=== PATIENT | male | born 1980 | race Caucasian/White ===

== ENCOUNTER 2018-04-19 09:25 | Emergency (ER) | payer OTHER ==
[~2018-04-19] VITALS: Ht 182.9 cm; Wt 102.1 kg
[2018-04-19] MEDS ORDERED: CYCL-331 PO (10:19)
[2018-04-19] MEDS ORDERED: TRAM-48 PO (10:19)
--- NOTE | 2018-04-19 10:19 | PHYS DOC ---
Past History Past Medical History: No Pertinent History Alcohol Use: None Drug Use: None Adult General Chief Complaint Chief Complaint: LOWER BACK PAIN OR INJURY HPI HPI Patient is a 38 year old male who presents with complaining of low back pain since yesterday. Patient states he bending over a grocery cart yesterday and felt sudden onset of pain in his back that getting worse with walking and movement. Patient denies focal neuro deficit, fever and chills, history of back pain, nausea and vomiting, fever and chills, urinary symptoms, urine and bowel incontinence. Patient rated his pain 8/10. Review of Systems Review of Systems Constitutional: Denies fever or chills [] Eyes: Denies change in visual acuity, redness, or eye pain [] HENT: Denies nasal congestion or sore throat [] Respiratory: Denies cough or shortness of breath [] Cardiovascular: No additional information not addressed in HPI [] GI: Denies abdominal pain, nausea, vomiting, bloody stools or diarrhea [] : Denies dysuria or hematuria [] Musculoskeletal: Reports back pain Integument: Denies rash or skin lesions [] Neurologic: Denies headache, focal weakness or sensory changes [] Endocrine: Denies polyuria or polydipsia [] All other systems were reviewed and found to be within normal limits, except as documented in this note. Current Medications Current Medications Current Medications Medications (Trade) Dose Ordered Sig/Eugenia Start Time Stop Time Status Last Admin Dose Admin Ketorolac Tromethamine (Toradol Im) 60 mg 1X ONCE 04/19/18 10:15 04/19/18 10:16 UNV Physical Exam Physical Exam Constitutional: Well developed, well nourished, mild distress, non-toxic appearance. [] HENT: Normocephalic, atraumatic Eyes: PERRLA, EOMI, conjunctiva normal, no discharge. [] Neck: Normal range of motion, no tenderness, supple, no stridor. [] Cardiovascular:Heart rate regular rhythm, no murmur [] Lungs & Thorax: Bilateral breath sounds clear to auscultation [] Abdomen: Bowel sounds normal, soft, no tenderness, no masses, no pulsatile masses. [] Skin: Warm, dry, no erythema, no rash. [] Back: No midline tenderness, decreased range of motion of lower back with paraspinal spasm, no CVA tenderness. [] Extremities: No tenderness, no cyanosis, no clubbing, ROM intact, no edema. [] Neurologic: Alert and oriented X 3, normal motor function, normal sensory function, no focal deficits noted. [] Psychologic: Affect normal, judgement normal, mood normal. [] EKG EKG [] Radiology/Procedures Radiology/Procedures [] Course & Med Decision Making Course & Med Decision Making discharge: I've spoken with the patient and/or caregivers. I've explained the patient's condition, diagnosis and treatment plan based on information available to me at this time. I've answered the patient's and/or caregivers questions and addressed any concerns. The patient and/or caregivers have a good understanding the patient's diagnosis, condition and treatment plan as can be expected at this point. Vital signs have been stabilized. The patient's condition is stable for discharge from the emergency department. The patient will pursue further outpatient evaluation with her primary care provider or other designated consulting physician as outlined in the discharge instructions. Patient and/or caregivers are agreeable to this plan of care and follow-up instructions have been explained in detail. The patient and/or caregivers have received these instructions in written format and expressed understanding of these discharge instructions. The patient and her caregivers are aware that if any significant change in condition or worsening of symptoms should prompt him to immediately return to this of the closest emergency department. If an emergent department is not readily available I would encourage him to call 911. Cody Disclaimer Cody Disclaimer This electronic medical record was generated, in whole or in part, using a voice recognition dictation system. Departure Departure: Impression: Primary Impression: Lumbosacral strain Disposition: HOME, SELF-CARE (at 1016) Condition: IMPROVED Referrals: ELE FARMER (PCP) Patient Instructions: Lumbosacral Radiculopathy, Lumbosacral Strain Additional Instructions: Apply ice on your back Follow-up with your primary care physician in 3-5 days Return to ER if not getting better Scripts Cyclobenzaprine Hcl (CYCLOBENZAPRINE HCL) 10 Mg Tablet 1 TAB PO TID, #30 TAB Prov: MIRANDA AGUIAR MD 04/19/18 Tramadol Hcl (ULTRAM) 50 Mg Tablet 50 MG PO PRN Q6HRS PRN for PAIN, #20 TAB Prov: MIRANDA AGUIAR MD 04/19/18 MIRANDA AGUIAR MD Apr 19, 2018 10:19
[2018-04-19 10:30] VITALS: BP 130/50
[2018-04-19] MEDS ORDERED: KETOROLAC 60 MG/2 ML VIAL. IM ONE (10:45)
== END 2018-04-19 10:40 | disposition home or self-care (01) ==
LOC: ER 09:25
DX: S39.012A Strain of muscle, fascia and tendon of lower back, initial encounter (principal); X50.0XXA Overexertion from strenuous movement or load, initial encounter; Y93.89 Activity, other specified; Y92.512 Supermarket, store or market as the place of occurrence of the external cause; Y99.8 Other external cause status
CPT/HCPCS: 96372; 99283; J1885

== ENCOUNTER 2018-06-14 20:13 | Emergency (ER) | payer OTHER ==
[~2018-06-14] VITALS: Ht 182.9 cm; Wt 103.0 kg
[~2018-06-14 20:13] MED LIST: CYCL-331 PO; TRAM-48 PO
[2018-06-14] MEDS ORDERED: PRED20TA PO (20:42)
[2018-06-14] MEDS ORDERED: ACET-704 PO (20:42)
--- NOTE | 2018-06-14 20:45 | PHYS DOC ---
Adult General Chief Complaint Chief Complaint back pain HPI HPI 38 years old gentleman presented emergency department with the black male radiate into his right leg associated with the minimal numbness . No weakness full of his bladder and stool Review of Systems Review of Systems Constitutional: Denies fever or chills [] Eyes: Denies change in visual acuity, redness, or eye pain [] HENT: Denies nasal congestion or sore throat [] Respiratory: Denies cough or shortness of breath [] Cardiovascular: No additional information not addressed in HPI [] GI: Denies abdominal pain, nausea, vomiting, bloody stools or diarrhea [] : Denies dysuria or hematuria [] Musculoskeletal: Denies joint pain [] Integument: Denies rash or skin lesions [] Neurologic: Denies headache, focal weakness or sensory changes [] Endocrine: Denies polyuria or polydipsia [] All other systems were reviewed and found to be within normal limits, except as documented in this note. Current Medications Current Medications Current Medications Medications (Trade) Dose Ordered Sig/Eugenia Start Time Stop Time Status Last Admin Dose Admin Acetaminophen/ Hydrocodone Bitart (Lortab 5/325) 2 tab 1X ONCE 06/14/18 20:45 06/14/18 20:46 UNV Dexamethasone Sodium Phosphate (Decadron) 10 mg 1X ONCE 06/14/18 20:45 06/14/18 20:46 UNV Allergies Allergies Allergies Coded Allergies Type Severity Reaction Last Updated Verified No Known Drug Allergies 04/19/18 No Physical Exam Physical Exam Constitutional: Well developed, well nourished, no acute distress, non-toxic appearance. [] HENT: Normocephalic, atraumatic, bilateral external ears normal, oropharynx moist, no oral exudates, nose normal. [] Eyes: PERRLA, EOMI, conjunctiva normal, no discharge. [] Neck: Normal range of motion, no tenderness, supple, no stridor. [] Cardiovascular:Heart rate regular rhythm, no murmur [] Lungs & Thorax: Bilateral breath sounds clear to auscultation [] Abdomen: Bowel sounds normal, soft, no tenderness, no masses, no pulsatile masses. [] Skin: Warm, dry, no erythema, no rash. [] Back: No tenderness, no CVA tenderness. [] Extremities: No tenderness, no cyanosis, no clubbing, ROM intact, no edema. [] Neurologic: Alert and oriented X 3, normal motor function, normal sensory function, no focal deficits noted. [] Psychologic: Affect normal, judgement normal, mood normal. [] Current Patient Data Vital Signs Vital Signs Date Time Temp Pulse Resp B/P (MAP) Pulse Ox O2 Delivery O2 Flow Rate FiO2 06/14/18 20:18 98.1 82 18 96 Room Air EKG EKG [] Radiology/Procedures Radiology/Procedures [] Course & Med Decision Making Course & Med Decision Making Pertinent Labs and Imaging studies reviewed. (See chart for details) [] Final Impression Final Impression [] Problems: (1) Sciatic nerve pain Qualifiers: Qualified Codes: M54.31 - Sciatica, right side Dragon Disclaimer Dragon Disclaimer This electronic medical record was generated, in whole or in part, using a voice recognition dictation system. KEVIN LYNN MD Jun 14, 2018 20:45
[2018-06-14 20:54] VITALS: BP 115/80
[2018-06-14] MEDS ORDERED: HYDROcodone/APAP 5/325MG 1 TAB TABLET PO ONE (21:00)
[2018-06-14] MEDS ORDERED: DEXAMETHASONE SOD PHOS 10 MG/ML VIAL IM ONE (21:00)
== END 2018-06-14 20:55 | disposition home or self-care (01) ==
LOC: ER 20:13
DX: M54.31 Sciatica, right side (principal)
CPT/HCPCS: 96372; 99283; J1100

== ENCOUNTER 2019-01-16 13:33 | Emergency (ER) | payer OTHER ==
[~2019-01-16] VITALS: Ht 182.9 cm; Wt 104.3 kg
[~2019-01-16 13:33] MED LIST changes: +ACET-704 PO; +PRED20TA PO
[2019-01-16 13:45] VITALS: BP 125/75
[2019-01-16] MEDS ORDERED: PENI500T PO (14:48)
--- NOTE | 2019-01-16 14:49 | PHYS DOC ---
Past History Past Medical History: No Pertinent History Past Surgical History: No Surgical History Alcohol Use: None Drug Use: None Adult General Chief Complaint Chief Complaint: SORE THROAT HPI HPI Patient is a 38 year old male who presents with complaint of sore throat. States that his symptoms started yesterday. Noted fatigue 2 days ago prior to onset of symptoms but did not have sore throat until yesterday. Denies any known fever. States that he noticed swelling of his tonsils with white spots on them. He is concerned about strep pharyngitis. States that he started taking penicillin at home left over from a previous prescription. He notes that his symptoms are starting to feel better today after starting the medication. Came to the emergency department to be evaluated to see if he is treating the right thing. Denies any shortness of breath, chest pain, or vomiting. Review of Systems Review of Systems Constitutional: Denies fever or chills [] Eyes: Denies change in visual acuity, redness, or eye pain [] HENT: Sore throat[] Respiratory: Denies cough or shortness of breath [] Cardiovascular: Denies chest pain or edema[] GI: Denies abdominal pain, nausea, vomiting, bloody stools or diarrhea [] : Denies dysuria or hematuria [] Musculoskeletal: Denies back pain or joint pain [] Integument: Denies rash or skin lesions [] Neurologic: Denies headache, focal weakness or sensory changes [] All other systems were reviewed and found to be within normal limits, except as documented in this note. Allergies Allergies Allergies Coded Allergies Type Severity Reaction Last Updated Verified No Known Drug Allergies 04/19/18 No Physical Exam Physical Exam Constitutional: Alert, afebrile, no acute distress. [] HENT: Normocephalic, atraumatic, bilateral external ears normal, oropharynx erythematous, tonsils are 2+ bilaterally with exudates, petechial hemorrhages present on soft palate. [] Eyes: PERRLA, EOMI, conjunctiva normal, no discharge. [] Neck: Normal range of motion, bilateral anterior cervical lymphadenopathy present, supple, no stridor. [] Cardiovascular:Heart rate regular rhythm, no murmur [] Lungs & Thorax: Bilateral breath sounds clear to auscultation [] Abdomen: Bowel sounds normal, soft, no tenderness, no masses, no pulsatile masses. [] Skin: Warm, dry, no erythema, no rash. [] Back: No tenderness, no CVA tenderness. [] Extremities: No tenderness, no cyanosis, no clubbing, ROM intact, no edema. [] Neurologic: Alert and oriented X 3, normal motor function, normal sensory function, no focal deficits noted. [] Current Patient Data Vital Signs Vital Signs Date Time Temp Pulse Resp B/P (MAP) Pulse Ox O2 Delivery O2 Flow Rate FiO2 01/16/19 13:45 98.4 86 16 95 Room Air Lab Results Laboratory Tests Test 01/16/19 14:00 Group A Streptococcus Rapid Negative (NEGATIVE) EKG EKG Not performed[] Radiology/Procedures Radiology/Procedures Not performed[] Course & Med Decision Making Course & Med Decision Making Pertinent Labs and Imaging studies reviewed. (See chart for details) Rapid strep is negative, however patient does have clinical features raising moderate to high suspicion for streptococcal pharyngitis. Given that the patient has initiated antibiotic treatment prior to coming in, the best course of action would be to finished this antibiotic treatment. I did financial health counselor patient on responsible use of prescription medications and to seek medical advice prior to taking any prescription medications for any conditions. Patient was understanding of this. Patient states that he has 6 days of penicillin VK at home for treatment. I will prescribe an additional 3 days of treatment in order to ensure full course of treatment received advised patient follow up with primary doctor in 1 week for reevaluation and recommended return to the emerg ency department for any worsening symptoms. Did financial health counselor patient on possibility of infectious mononucleosis as part of the differential diagnosis. I stated that if the symptoms are not improving after 7-10 days, he would need to seek follow-up to have mono spot testing completed.[] Dragon Disclaimer Dragon Disclaimer This electronic medical record was generated, in whole or in part, using a voice recognition dictation system. Departure Departure: Impression: Primary Impression: Acute pharyngitis Disposition: HOME, SELF-CARE Condition: STABLE Referrals: ELE FARMER (PCP) Patient Instructions: Viral and Bacterial Pharyngitis Additional Instructions: Finish the 6 days of penicillin VK that you have remaining from your previous prescription. You'll be prescribed an additional 3 days to complete full course of treatment. Follow-up with your primary doctor in 1 week if symptoms are not improving. Return to the emergency department for any worsening symptoms. Scripts Penicillin V Potassium (PENICILLIN V POTASSIUM) 500 Mg Tablet 1 TAB PO QID for 3 Days, #12 TAB Prov: GRAYSON BOBBY MD 01/16/19 Problem Qualifiers Primary Impression: Acute pharyngitis Pharyngitis/tonsillitis etiology: unspecified etiology Qualified Codes: J02.9 - Acute pharyngitis, unspecified GRAYSON BOBBY MD Jan 16, 2019 14:49
== END 2019-01-16 14:50 | disposition home or self-care (01) ==
LOC: ER 13:33
DX: J02.9 Acute pharyngitis, unspecified (principal); R59.0 Localized enlarged lymph nodes
CPT/HCPCS: 87070; 87880; 99283